=== PATIENT | female | born 1975 | race Two or more races ===

== ENCOUNTER → 2017-05-26 | Emergency (ER) | payer OTHER ==
[~2017-05-26] VITALS: Ht 162.6 cm; Wt 99.3 kg
[~2017-05-26] MED LIST: ALLEGRA ALLERG180 MG PO; BUTALB-ACETAMI1 EACH PO; DOLOGEN CAPLET1 EACH PO; FIORICET 50-321 EACH PO; NABUMETONE750 MG PO; TUSICOF LIQUID120 ML PO; ZITHROMAX PO
== END | disposition home or self-care (01) ==
LOC: ER 17:19
DX: G44.209 Tension-type headache, unspecified, not intractable (principal)

== ENCOUNTER 2017-06-13 18:40 | Emergency (ER) | payer OTHER ==
[~2017-06-13] VITALS: Ht 160 cm; Wt 98.9 kg
== END 2017-06-13 23:16 | disposition home or self-care (01) ==
LOC: ER 18:40
DX: N39.0 Urinary tract infection, site not specified (principal)

== ENCOUNTER 2017-11-10 18:42 | Emergency (ER) | payer OTHER ==
[~2017-11-10] VITALS: Ht 160 cm; Wt 99.8 kg
[2017-11-10] MEDS ORDERED: PANADOL EXTRA500 MG (18:52)
== END 2017-11-10 22:23 | disposition home or self-care (01) ==
LOC: ER 18:42
DX: M54.5 Low back pain (principal)

== ENCOUNTER 2018-02-19 16:58 | Emergency (ER) | payer OTHER ==
[~2018-02-19] VITALS: Ht 160 cm; Wt 99.3 kg
[~2018-02-19 16:58] MED LIST changes: +PANADOL EXTRA500 MG
== END 2018-02-19 18:37 | disposition home or self-care (01) ==
LOC: ER 16:58
DX: G44.219 Episodic tension-type headache, not intractable (principal)

== ENCOUNTER 2018-08-17 15:59 | Emergency (ER) | payer OTHER ==
[~2018-08-17] VITALS: Ht 162.6 cm; Wt 99.8 kg
== END 2018-08-17 18:02 | disposition home or self-care (01) ==
LOC: ER 15:59
DX: M79.672 Pain in left foot (principal); M79.671 Pain in right foot

== ENCOUNTER 2018-10-16 00:20 | Emergency (ER) | payer OTHER ==
[~2018-10-16] VITALS: Ht 160 cm; Wt 104.8 kg
[2018-10-16] MEDS ORDERED: ANUSOL-HC25 MG RECTAL (07:16)
== END 2018-10-16 08:04 | disposition home or self-care (01) ==
LOC: ER 00:20
DX: K62.5 Hemorrhage of anus and rectum (principal)

== ENCOUNTER 2019-04-13 09:18 | Emergency (ER) | payer OTHER ==
[~2019-04-13] VITALS: Ht 170.2 cm; Wt 99.8 kg
[~2019-04-13 09:18] MED LIST changes: +ANUSOL-HC25 MG RECTAL
[2019-04-13] MEDS ORDERED: ZITHROMAX500 MG PO (13:32)
== END 2019-04-13 14:02 | disposition home or self-care (01) ==
LOC: ER 09:18
DX: B34.9 Viral infection, unspecified (principal); B96.0 Mycoplasma pneumoniae [M. pneumoniae] as the cause of diseases classified elsewhere

== ENCOUNTER 2019-04-19 14:38 | Emergency (ER) | payer OTHER ==
[~2019-04-19] VITALS: Ht 170.2 cm; Wt 99.8 kg
[~2019-04-19 14:38] MED LIST changes: +ZITHROMAX500 MG PO
[2019-04-20] MEDS ORDERED: BENADRYL25 MG PO (03:02)
== END 2019-04-20 03:16 | disposition home or self-care (01) ==
LOC: ER 14:38
DX: R60.0 Localized edema (principal); T36.3X5A Adverse effect of macrolides, initial encounter

== ENCOUNTER 2019-09-26 17:41 | Emergency (ER) | payer OTHER ==
[~2019-09-26] VITALS: Ht 162.6 cm; Wt 99.8 kg
[~2019-09-26 17:41] MED LIST changes: +BENADRYL25 MG PO
[2019-09-26] MEDS ORDERED: DICLOFENAC SODI75 MG PO (18:02)
[2019-09-26] MEDS ORDERED: NORFLEX100MG PO (18:02)
== END 2019-09-26 18:18 | disposition home or self-care (01) ==
LOC: ER 17:41
DX: M43.6 Torticollis (principal)

== ENCOUNTER 2019-11-22 16:30 | Emergency (ER) | payer OTHER ==
[~2019-11-22] VITALS: Ht 160 cm; Wt 98.9 kg
[~2019-11-22 16:30] MED LIST changes: +DICLOFENAC SODI75 MG PO; +NORFLEX100MG PO
== END 2019-11-22 22:35 | disposition home or self-care (01) ==
LOC: ER 16:30
DX: K29.70 Gastritis, unspecified, without bleeding (principal); Z20.828 Contact with and (suspected) exposure to other viral communicable diseases

== ENCOUNTER → 2020-08-12 | Emergency (ER) | payer OTHER ==
[~2020-08-12] VITALS: Ht 165.1 cm; Wt 93.4 kg
[~2020-08-12] MED LIST changes: +ACETAMINOPHEN500 M1; +NAPROXEN375 MG PO
== END | disposition home or self-care (01) ==
LOC: ER 20:31
DX: M79.89 Other specified soft tissue disorders (principal); N39.0 Urinary tract infection, site not specified

== ENCOUNTER 2020-08-18 19:31 | Emergency (ER) | payer OTHER ==
[~2020-08-18] VITALS: Ht 165.1 cm; Wt 93.4 kg
[~2020-08-18 19:31] MED LIST changes: -ACETAMINOPHEN500 M1; -NAPROXEN375 MG PO
[2020-08-19] MEDS ORDERED: NAPROXEN375 MG PO (00:16)
[2020-08-19] MEDS ORDERED: ACETAMINOPHEN500 M1 (22:31)
== END 2020-08-19 02:00 | disposition home or self-care (01) ==
LOC: ER 19:31
DX: D25.9 Leiomyoma of uterus, unspecified (principal); N83.291 Other ovarian cyst, right side; N93.8 Other specified abnormal uterine and vaginal bleeding

== ENCOUNTER 2020-10-04 21:03 | Emergency (ER) | payer OTHER ==
[~2020-10-04] VITALS: Ht 162.6 cm; Wt 0.5 kg
[~2020-10-04 21:03] MED LIST changes: +ACETAMINOPHEN500 M1; +NAPROXEN375 MG PO
[2020-11-04] MEDS ORDERED: PYRIDIUM200 MG PO (03:12)
[2020-11-04] MEDS ORDERED: KETO10TA2 PO (03:12)
[2020-11-04] MEDS ORDERED: NORFLEX100MG PO (03:12)
[2020-11-04] MEDS ORDERED: BACTRIM DS TAB1 EACH PO (03:12)
[2020-11-11] MEDS ORDERED: ACETAMINOPHEN650 M2 (16:07)
== END 2020-10-04 23:23 | disposition home or self-care (01) ==
LOC: ER 21:03
DX: R53.1 Weakness (principal); F06.4 Anxiety disorder due to known physiological condition

== ENCOUNTER → 2020-10-23 | Emergency (ER) | payer OTHER ==
[~2020-10-23] VITALS: Ht 160 cm; Wt 87.5 kg
[~2020-10-23] MED LIST changes: +ACETAMINOPHEN650 M2; +BACTRIM DS TAB1 EACH PO; +IVERMECTIN3 MG PO; +KETO10TA2 PO; +MULTIVITAMINS1 EAC8 PO; +PEPCID AC20 MG PO; +PYRIDIUM200 MG PO
== END | disposition home or self-care (01) ==
LOC: ER 20:16
DX: R53.1 Weakness (principal)

== ENCOUNTER 2020-11-12 07:25 | Emergency (ER) | payer OTHER ==
[~2020-11-12] VITALS: Ht 160 cm; Wt 88.5 kg
[~2020-11-12 07:25] MED LIST changes: -IVERMECTIN3 MG PO; -MULTIVITAMINS1 EAC8 PO; -PEPCID AC20 MG PO
[2020-11-12] MEDS ORDERED: ZITHROMAX500 MG PO (19:44)
[2020-11-12] MEDS ORDERED: PEPCID AC20 MG PO (19:44)
[2020-11-12] MEDS ORDERED: IVERMECTIN3 MG PO (19:44)
[2020-11-12] MEDS ORDERED: MULTIVITAMINS1 EAC8 PO (19:44)
== END 2020-11-12 21:45 ==
LOC: ER 07:25
DX: U07.1 COVID-19 (principal); J12.89 Other viral pneumonia; B96.0 Mycoplasma pneumoniae [M. pneumoniae] as the cause of diseases classified elsewhere; B34.9 Viral infection, unspecified; R09.81 Nasal congestion; R05 Cough

== ENCOUNTER 2020-11-18 05:25 | Emergency (ER) | payer OTHER ==
[~2020-11-18] VITALS: Ht 160 cm; Wt 85.7 kg
[~2020-11-18 05:25] MED LIST changes: +IVERMECTIN3 MG PO; +MULTIVITAMINS1 EAC8 PO; +PEPCID AC20 MG PO
== END 2020-11-18 12:06 | disposition home or self-care (01) ==
LOC: ER 05:25
DX: J10.1 Influenza due to other identified influenza virus with other respiratory manifestations (principal); B34.9 Viral infection, unspecified; Z86.16 Personal history of COVID-19

== ENCOUNTER 2021-02-13 08:00 | Outpatient (CLI) | payer OTHER | END 2021-02-13 08:30 | disposition home or self-care (01) | LOC: PPH VACUNA 08:00 | PROVIDERS: ATTEND Emergency Medicine Pediatric Emergency Medicine | DX: Z23 Encounter for immunization (principal) ==

== ENCOUNTER 2021-03-06 08:00 | Outpatient (CLI) | payer OTHER | END 2021-03-06 08:30 | disposition home or self-care (01) | LOC: PPH VACUNA 08:00 | PROVIDERS: ATTEND Emergency Medicine Pediatric Emergency Medicine | DX: Z23 Encounter for immunization (principal) ==

== ENCOUNTER 2021-10-15 07:19 | Emergency (ER) | payer OTHER ==
[~2021-10-15] VITALS: Ht 162.6 cm; Wt 99.8 kg
[2021-10-15] MEDS ORDERED: RISPERDAL1 MG (07:31)
[2021-10-15] MEDS ORDERED: CLONAZEPAM0.125 MG (07:31)
== END 2021-10-15 12:19 | disposition home or self-care (01) ==
LOC: ER 07:19
DX: F41.8 Other specified anxiety disorders (principal); N39.0 Urinary tract infection, site not specified

== ENCOUNTER 2024-05-13 19:32 | Emergency (ER) | payer OTHER ==
[~2024-05-13] VITALS: Ht 170.2 cm; Wt 103.9 kg
[~2024-05-13 19:32] MED LIST changes: +CLONAZEPAM0.125 MG; +RISPERDAL1 MG
[2024-05-13] MEDS ORDERED: ACETAMINOPHEN 500 MG GEL..CAP PO ONE (21:00)
[2024-05-13] MEDS ORDERED: KETOROLAC TROMETHAMINE 30 MG VIAL IM STA (21:44)
[2024-05-13] MEDS ORDERED: KETOROLAC TROMETHAMINE 30 MG VIAL ONE (21:47)
== END 2024-05-13 21:53 | disposition home or self-care (01) ==
LOC: ER 19:35
DX: J10.1 Influenza due to other identified influenza virus with other respiratory manifestations (principal); Z20.822 Contact with and (suspected) exposure to COVID-19